=== PATIENT | female | born 1965 | race Caucasian/White ===

== ENCOUNTER 2020-09-14 14:36 | Outpatient (REF) | payer BC, SELFPAY ==
[2020-09-14 15:25] LABS: Anion Gap 12 (12-20); Blood Urea Nitrogen 13 mg/dL (9-16); Calcium 9.3 mg/dL (8.4-10.2); Carbon Dioxide 31 mmol/L (22-29); Chloride 99 mmol/L (96-108); Estimated Glomerular Filt Rate > 60; Phosphorus 3.9 mg/dL (2.7-4.5); Potassium 3.5 mmol/L (3.3-5.1); Sodium 138 mmol/L (135-145)
[2020-09-14 16:51] LABS: Renal w Reflex Lab Use Only Order verified
== END 2020-09-14 14:37 | disposition home or self-care (01) ==
LOC: HO.LAB 14:36
PROVIDERS: PCP Family Medicine; Visit Provider Internal Medicine Nephrology
DX: I10 Essential (primary) hypertension (principal)
CPT/HCPCS: 36415; 80051; 82310; 82565; 84100; 84520

== ENCOUNTER 2021-09-04 14:39 | Outpatient (REF) | payer BC, SELFPAY ==
[2021-09-04 15:39] LABS: Anion Gap 10 (12-20); Blood Urea Nitrogen 13 mg/dL (9-16); Carbon Dioxide 34 mmol/L (22-29); Chloride 97 mmol/L (96-108); Estimated Glomerular Filt Rate > 60; Sodium 137 mmol/L (135-145)
[2021-09-04 16:25] LABS: Creatinine Urine 15.16 mg/dL; Total Protein Urine Random < 7 mg/dL (<12)
== END 2021-09-04 14:40 | disposition home or self-care (01) ==
LOC: HO.LAB 14:39
PROVIDERS: PCP Family Medicine; Visit Provider Internal Medicine Nephrology
DX: I10 Essential (primary) hypertension (principal)
CPT/HCPCS: 36415; 80051; 82310; 82565; 84156; 84520

== ENCOUNTER 2022-12-31 09:11 | Outpatient (REF) | payer OTHER, SELFPAY ==
[2022-12-31 11:00] LABS: Anion Gap 12 (12-20); Blood Urea Nitrogen 13 mg/dL (9-16); Carbon Dioxide 32 mmol/L (22-29); Chloride 100 mmol/L (96-108); Estimated Glomerular Filt Rate > 60; Potassium 3.6 mmol/L (3.3-5.1); Sodium 140 mmol/L (135-145)
[2022-12-31 11:42] LABS: Creatinine Urine 110.35 mg/dL; Microalbumin Urine < 5.0 mg/L
== END 2022-12-31 09:12 | disposition home or self-care (01) ==
LOC: HO.LAB 09:11
PROVIDERS: PCP Family Medicine; Visit Provider Internal Medicine Nephrology
DX: I10 Essential (primary) hypertension (principal)
CPT/HCPCS: 36415; 80051; 82043; 82310; 82565; 84520

== ENCOUNTER 2023-08-19 10:41 | Outpatient (REF) | payer OTHER, SELFPAY ==
[2023-08-19 10:58] LABS: MANUAL DIFF FLAG NO
[2023-08-19 11:42] LABS: Basophils Absolute Auto 0.1 X10*3/uL (0.0-0.2); Basophils Percent Auto 0.6 % (0-2); Eosinophils Absolute Auto 0.3 X10*3/uL (0.0-0.4); Eosinophils Percent Auto 2.8 % (0-4); Hemoglobin 14.9 g/dl (12.0-16.0); Imm Gran Abs Auto 0.03 X10*3/uL (0.00-0.03); Imm Gran Pct Auto 0.3 % (0.0-0.4); Lymphocytes Absolute Auto 3.9 X10*3/uL (1.2-4.9); Lymphocytes Percent Auto 40.1 % (20-40); Mean Corpuscular HGB Conc 34.7 g/dl (31.0-35.0); Mean Corpuscular Hemoglobin 29.4 pg (27.0-33.0); Mean Platelet Volume 9.1 fL (9.4-12.3); Monocytes Absolute Auto 0.7 X10*3/uL (0.1-1.2); Monocytes Percent Auto 7.5 % (2-11); Neutrophils Absolute Auto 4.8 x10*3/uL (2.0-8.3); Neutrophils Percent Auto 48.7 % (45-73); Platelet Count 312 X10*3/uL (160-400); Red Blood Count 5.06 X10*6/uL (4.20-5.50); Red Cell Distribution Width 13.5 % (11.0-16.0); White Blood Count 9.8 X10*3/uL (4.8-10.8)
[2023-08-19 12:19] LABS: Anion Gap 11 (12-20); Blood Urea Nitrogen 16 mg/dL (9-16); Calcium 9.6 mg/dL (8.4-10.2); Carbon Dioxide 32 mmol/L (22-29); Chloride 102 mmol/L (96-108); Estimated Glomerular Filt Rate > 60; Glucose Random 107 mg/dL (60-115); Sodium 141 mmol/L (135-145)
== END 2023-08-19 10:42 | disposition home or self-care (01) ==
LOC: HO.LAB 10:41
PROVIDERS: Visit Provider Internal Medicine Hypertension Specialist
DX: N18.30 Chronic kidney disease, stage 3 unspecified (principal)
CPT/HCPCS: 36415; 80048; 85025

== ENCOUNTER 2023-08-20 10:14 | Outpatient (AMB) | payer OTHER, SELFPAY ==
[2023-08-20 10:23] VITALS: BP 130/72; PULSE 75; O2SAT 98; BMI 36.2
--- NOTE | 2023-08-20 10:23 | HO.NEPHOV_ITS ---
HPI HPI Comments History of Present Illness Details I would the pleasure of seeing Ely in follow-up of her hypertension. She is feeling well. She has gained quite a bit of weight. She denies any chest pain, chest tightness, shortness of breath, paroxysmal nocturnal dyspnea, orthopnea, pedal edema, urinary symptoms, orthostatic symptoms. She does not take any nonsteroidal anti-inflammatory medications. She tries to maintain good hydration. Her blood pressure has been at goal. REPLACED BY [facility] Medical History (Updated 08/20/23 @ 13:13 by Chon Severino MD) Hypertension Surgical History (Updated 08/20/23 @ 10:25 by Katie Little MA) History of surgical removal of ganglion cyst Hx of appendectomy Hx of tonsillectomy Family History (Updated 08/20/23 @ 10:27 by Katie Little MA) Mother Diabetes Hypertension High cholesterol Father Parkinson disease Social History (Updated 08/20/23 @ 10:27 by Katie Little MA) Alcohol intake: never Patient Tobacco Use Status: Never used Tobacco Vital Signs 08/20/23 10:23 Height 5 ft 3 in Weight 204 lb 8 oz BMI 36.2 BP 130/72 Blood Pressure Location Lt brachial Position Sitting Pulse 75 Pulse Source Pulse Oximeter Pulse Oximetry (%) 98 Oxygen Delivery Method Room Air Physical Exam Vital Signs: Last Vital Signs Pulse 75 08/20/23 10:23 BP 130/72 08/20/23 10:23 Pulse Ox 98 08/20/23 10:23 Oxygen Delivery Method Room Air 08/20/23 10:23 BMI result Body Mass Index 36.2 Const General: comfortable and no acute distress Orientation/consciousness: patient oriented x3 HEENT Head: Yes normocephalic Mouth: Normal oral and palatal mucosa present Eyes EOM: EOMs intact bilaterally Neck Neck: Yes supple Resp Auscultation: clear to auscultation bilaterally Cardio Jugular venous distension: no JVD Rate: regular rate GI Palpation (GI): Soft to palpation Auscultation: normal bowel sounds General: Yes no CVA tenderness Back/Spine/Pelvis Back: no CVA tenderness Skin General skin exam: no rashes or lesions noted Neuro General: patient oriented x3 and moves all extremities Extrem General: Yes no pedal edema Assessment & Plan Assessment & Plan (1) Hypertension: Code(s): I10 - Essential (primary) hypertension Qualifiers: Hypertension type: primary hypertension Qualified Code(s): I10 - Essential (primary) hypertension Plan Ely has longstanding hypertension and is currently well controlled on current medication regimen. She is diabetic and is on not Trulicity. She is gained quite a bit of weight. She has not known to have any retinopathy, proteinuria, left ventricular hypertrophy or renal dysfunction. She never had any coronary artery disease, CVA, congestive heart failure. She needs to lose significant weight. She needs to maintain low-sodium diet. She will be benefitted from a sleep study. I had not make any medication changes today. All these have been discussed in detail. Answered all questions. Follow-up appointment given. Coding Level of Care Code Est Pt Level 4 (28157) Diagnoses Primary hypertension I10 Hypertension type: primary hypertension Results Reviewed Nephrology Results: Hgb 14.9 g/dl (12.0-16.0) 08/19/23 WBC 9.8 X10*3/uL (4.8-10.8) 08/19/23 Plt Count 312 X10*3/uL (160-400) 08/19/23 Sodium 141 mmol/L (135-145) 08/19/23 Potassium 4.0 mmol/L (3.3-5.1) 08/19/23 Chloride 102 mmol/L (96-108) 08/19/23 Carbon Dioxide 32 mmol/L (22-29) H 08/19/23 BUN 16 mg/dL (9-16) 08/19/23 Creatinine 0.71 mg/dL (0.5-1.4) 08/19/23 Calcium 9.6 mg/dL (8.4-10.2) 08/19/23 Phosphorus 3.9 mg/dL (2.7-4.5) 09/14/20 Urine Creatinine 110.35 mg/dL 12/31/22 Protein/Creatinin Ratio TNP 09/04/21
== END 2023-08-20 10:52 | disposition home or self-care (01) ==
PROVIDERS: PCP Family Medicine; Visit Provider Internal Medicine Nephrology
DX: I10 Essential (primary) hypertension (principal)
CPT/HCPCS: 99214

== ENCOUNTER → 2023-08-20 10:14 | Outpatient (BNVA) | payer OTHER, SELFPAY | PROVIDERS: PCP Family Medicine; Visit Provider Internal Medicine Nephrology | DX: I10 Essential (primary) hypertension (principal) | CPT/HCPCS: 99212 ==

== ENCOUNTER 2024-02-11 09:42 | Outpatient (REF) | payer OTHER, SELFPAY ==
[2024-02-11 10:35] LABS: Anion Gap 16 (12-20); Blood Urea Nitrogen 12 mg/dL (9-16); Carbon Dioxide 29 mmol/L (22-29); Chloride 97 mmol/L (96-108); Estimated Glomerular Filt Rate > 60; Potassium 3.5 mmol/L (3.3-5.1); Sodium 138 mmol/L (135-145)
== END 2024-02-11 09:43 | disposition home or self-care (01) ==
LOC: HO.LAB 09:42
PROVIDERS: PCP Family Medicine; Visit Provider Internal Medicine Nephrology
DX: I10 Essential (primary) hypertension (principal)
CPT/HCPCS: 36415; 80051; 82565; 84520

== ENCOUNTER 2024-02-12 12:58 | Outpatient (REF) | payer OTHER, SELFPAY ==
[2024-02-12 14:00] LABS: Creatinine Urine 80.78 mg/dL; Total Protein Urine Random < 7 mg/dL (<12)
== END 2024-02-12 12:59 | disposition home or self-care (01) ==
LOC: HO.LNP 12:58
PROVIDERS: Visit Provider Internal Medicine Nephrology
DX: I10 Essential (primary) hypertension (principal)
CPT/HCPCS: 82570; 84156

== ENCOUNTER 2024-02-18 10:46 | Outpatient (AMB) | payer OTHER, SELFPAY ==
--- NOTE | 2024-02-18 10:51 | HO.NEPHOV ---
Vital Signs 02/18/24 10:52 Height 5 ft 3 in Weight 203 lb 4 oz BMI 36.0 BP 122/74 Blood Pressure Location Rt brachial Position Sitting Pulse 71 Pulse Source Pulse Oximeter Pulse Oximetry (%) 97 Oxygen Delivery Method Room Air Intake Visit Reasons: Hypertension/ 6 MO FU- Conf Refrigerated Company Driver Required: No Accompanied by: Self / Same As Patient Allergies No Known Allergies Allergy (Verified 02/18/24 10:54) HPI Comments Details: I had the pleasure of seeing Ely in follow-up of her hypertension. She is feeling well. She has gained some weight. She denies any chest pain, chest tightness, shortness of breath, paroxysmal nocturnal dyspnea, orthopnea, pedal edema, urinary symptoms, orthostatic symptoms. She does not take any nonsteroidal anti-inflammatory medications. She tries to maintain good hydration. Her blood pressure has been at goal [facility] Medical History (Updated 08/20/23 @ 13:13 by Chon Severino MD) Hypertension Surgical History (Updated 08/20/23 @ 10:25 by Katie Little MA) History of surgical removal of ganglion cyst Hx of appendectomy Hx of tonsillectomy Family History Mother Diabetes Hypertension High cholesterol Father Parkinson disease Social History Alcohol intake: never Patient Tobacco Use Status: Never used Tobacco Review of Systems Const All systems reviewed & are unremarkable except as noted in HPI and below Physical Exam Vital Signs: Last Vital Signs Pulse 71 02/18/24 10:52 BP 122/74 02/18/24 10:52 Pulse Ox 97 02/18/24 10:52 Oxygen Delivery Method Room Air 02/18/24 10:52 BMI result Body Mass Index 36.0 Const General: comfortable and no acute distress Orientation/consciousness: patient oriented x3 HEENT Head: Yes normocephalic Mouth: Normal oral and palatal mucosa present Eyes EOM: EOMs intact bilaterally Neck Neck: Yes supple Resp Auscultation: clear to auscultation bilaterally Cardio Jugular venous distension: no JVD Rate: regular rate GI Palpation (GI): Soft to palpation Auscultation: normal bowel sounds General: Yes no CVA tenderness Back/Spine/Pelvis Back: no CVA tenderness Skin General skin exam: no rashes or lesions noted Neuro General: patient oriented x3 and moves all extremities Extrem General: Yes no pedal edema Results Reviewed Nephrology Results: Hgb 14.9 g/dl (12.0-16.0) 08/19/23 WBC 9.8 X10*3/uL (4.8-10.8) 08/19/23 Plt Count 312 X10*3/uL (160-400) 08/19/23 Sodium 138 mmol/L (135-145) 02/11/24 Potassium 3.5 mmol/L (3.3-5.1) 02/11/24 Chloride 97 mmol/L (96-108) 02/11/24 Carbon Dioxide 29 mmol/L (22-29) 02/11/24 BUN 12 mg/dL (9-16) 02/11/24 Creatinine 0.80 mg/dL (0.5-1.4) 02/11/24 Calcium 9.6 mg/dL (8.4-10.2) 08/19/23 Phosphorus 3.9 mg/dL (2.7-4.5) 09/14/20 Urine Creatinine 80.78 mg/dL 02/12/24 Protein/Creatinin Ratio TNP 02/12/24 Assessment & Plan Assessment & Plan (1) Hypertension: Code(s): I10 - Essential (primary) hypertension Category: Medical Qualifiers: Hypertension type: primary hypertension Qualified Code(s): I10 - Essential (primary) hypertension Plan Ely has longstanding hypertension and is currently well controlled on current medication regimen. She is diabetic and is on not Trulicity. She has gained some weight. She has not known to have any retinopathy, proteinuria, left ventricular hypertrophy or renal dysfunction. She never had any coronary artery disease, CVA, congestive heart failure. She needs to lose significant weight. She needs to maintain low-sodium diet. She will be benefitted from a sleep study( I ordered one). I had not make any medication changes today. All these have been discussed in detail. Answered all questions. Follow-up appointment given Orders: Orders RT home sleep study 02/18/24 I10 - Essential (primary) hypertension Coding Level of Care Code Est Pt Level 4 (52652) Diagnoses Primary hypertension I10 Hypertension type: primary hypertension
[2024-02-18 10:52] VITALS: BP 122/74; PULSE 71; O2SAT 97; BMI 36.0
== END 2024-02-18 11:13 | disposition home or self-care (01) ==
PROVIDERS: PCP Family Medicine; Visit Provider Internal Medicine Nephrology
DX: I10 Essential (primary) hypertension (principal)
CPT/HCPCS: 99214

== ENCOUNTER → 2024-02-18 10:46 | Outpatient (BNVA) | payer OTHER, SELFPAY | PROVIDERS: PCP Family Medicine; Visit Provider Internal Medicine Nephrology | DX: I10 Essential (primary) hypertension (principal) | CPT/HCPCS: 99212 ==

== ENCOUNTER → 2024-04-26 08:29 | Outpatient (REF) | payer OTHER, SELFPAY | LOC: HO.SL 08:29 | PROVIDERS: PCP Family Medicine; Visit Provider Internal Medicine Nephrology | DX: R06.83 Snoring (principal); I10 Essential (primary) hypertension | CPT/HCPCS: 95806 ==

== ENCOUNTER → 2024-04-27 09:00 | Outpatient (BNV) | payer OTHER, SELFPAY | PROVIDERS: PCP Family Medicine; Visit Provider Internal Medicine | DX: R06.83 Snoring (principal); G47.10 Hypersomnia, unspecified | CPT/HCPCS: 95806 ==

== ENCOUNTER 2024-06-21 10:26 | Outpatient (AMB) | payer BC, MEDICAID, SELFPAY ==
--- NOTE | 2024-06-21 09:54 | A.OFFVIS_ITS ---
Vital Signs 06/21/24 10:30 06/21/24 11:04 Height 5 ft 3 in Weight 199 lb 8.293 oz BMI 35.3 Pulse 84 Pulse Source Pulse Oximeter Pulse Oximetry (%) 90 L 98 Oxygen Delivery Method Room Air Room Air Intake Visit Reasons: Obstructive sleep apnea Investment Executive Required: No Telegraph Repeater Technician: Telegraph Repeater Technician offered & declined Allergies No Known Allergies Allergy (Verified 06/21/24 10:32) Medication List - Last Reconciled 06/21/24 by Hyacinth Tillman LPN atorvastatin 10 mg PO DAILY blood sugar diagnostic ([employer] Ultra Test strips) As directed dulaglutide (Trulicity) 1.5 mg subcut QWEEK hydrochlorothiazide 25 mg PO DAILY multivitamin 1 tab PO DAILY valsartan 320 mg PO DAILY HPI HPI Obstructive sleep apnea: Details: Ely is a pleasant 58 year old female, never smoker, with underlying hypertension. She was referred by Nephrology after recent home sleep study revealed moderate obstructive sleep apnea with mild nocturnal hypoxemia. She was initially sent for nonrestorative sleep, daytime fatigue and loud snoring. She denies prior dx of CALE or use of CPAP therapy. She denies any pertinent family history. She reports h/o mild asthma usually allergy related, using albuterol very infrequently and denies any respiratory symptoms at this time. [facility] Medical History (Updated 06/21/24 @ 11:02 by Kae James NP) Hypertension Surgical History (Updated 08/20/23 @ 10:25 by Katie Little MA) History of surgical removal of ganglion cyst Hx of appendectomy Hx of tonsillectomy Family History Mother Diabetes Hypertension High cholesterol Father Parkinson disease Social History Alcohol intake: never Patient Tobacco Use Status: Never used Tobacco Review of Systems Const Denies chills, Denies excessive sweating, Denies fever(s), Denies headache(s) and Denies night sweats Eyes Denies dry eyes, Denies irritation and Denies itchy eyes ENT Reports Normal hearing present and Denies headache(s) Card Denies chest pain, Denies chest pain at rest, Denies chest pain with activity, Denies claudication, Denies leg edema, Denies dyspnea, Denies dyspnea on exertion, Denies orthopnea and Denies paroxysmal nocturnal dyspnea Resp Denies chest congestion, Denies cough, Denies excessive phlegm production, Denies pain on inspiration, Denies pain with cough, Denies dyspnea, Denies dyspnea on exertion, Denies stridor and Denies wheezing Musc Denies myalgias Neuro Reports Normal hearing present and Denies headache(s) Endo Denies excessive sweating Woo/Lymph Denies lymphadenopathy Aller/Immun Denies itchy eyes, Denies seasonal rhinorrhea and Denies wheezing Physical Exam Vital Signs: Last Vital Signs Pulse 84 06/21/24 10:30 Pulse Ox 90 L 06/21/24 10:30 Oxygen Delivery Method Room Air 06/21/24 10:30 BMI result Body Mass Index 35.3 Const General: cooperative, healthy appearing, comfortable, no acute distress, well developed and alert Nutritional Appearance: obese Orientation/consciousness: patient oriented x3 Limitations: no limitations HEENT Head: Yes normal to inspection, Yes normocephalic and Yes atraumatic Ears: hearing grossly normal bilaterally and external ears normal Eyes General: appearance normal, both eyes and all related structures Eyelids: Yes eyelids normal Sclerae: sclerae normal EOM: EOMs intact bilaterally Neck Neck: Yes normal visual inspection and Yes no lymphadenopathy Lymphatic: no lymphadenopathy noted Chest Chest palpation & inspection: normal inspection of the chest Resp Effort & Inspection: normal respiratory effort, able to speak in complete sentences, no audible wheezes, no cough, no stridor, not tachypneic, no tripod positioning and no use of accessory muscles Auscultation: clear to auscultation bilaterally Cardio Jugular venous distension: no JVD Rate: regular rate Rhythm: regular rhythm Skin Other: warm, dry General skin exam: no rashes or lesions noted Neuro General: patient oriented x3 Cranial nerves: Yes Normal hearing present Cognition (Neuro): normal cognition Gait exam (Neuro): Normal gait present Extrem General: Yes normal to inspection, Yes capillary refill normal, Yes no clubbing, cyanosis or edema and Yes no pedal edema Psych Appearance: grossly normal and well kempt Speech and movement: Normal speech and movement present and Clear speech present Affect: normal affect Attitude: cooperative Thought process: Normal thought process present Thought content: Normal thought content present Insight: Good insight present (Psych) Judgement: Good judgement present (Psych) Assessment & Plan Assessment & Plan (1) Obstructive sleep apnea: Code(s): G47.33 - Obstructive sleep apnea (adult) (pediatric) Category: Medical (2) Nocturnal hypoxemia: Code(s): G47.34 - Idiopathic sleep related nonobstructive alveolar hypoventilation Category: Medical Plan Reviewed sleep study results with patient which revealed an AHI of 20, mild nocturnal hypoxemia <88% for 13 minutes, lowest 75%. Since patient is quite symptomatic, will start CPAP therapy. Will send in prescription for APAP mode and pressure settings of 6-20 cm with close monitoring for compliance and benefits. Once on CPAP therapy will send for overnight oximetry to ensure nocturnal hypoxemia has resolved with use. Sleep hygiene education reviewed. She is aware if there are any issues with the mask or CPAP machine, she will call the office. All questions were answered and patient is in agreement of plan. Will follow up in 8 weeks. Coding Level of Care Code New Pt Level 4 (49682) Diagnoses Obstructive sleep apnea G47.33 Nocturnal hypoxemia G47.34
[2024-06-21 10:30] VITALS: PULSE 84; O2SAT 90; BMI 35.3
[2024-06-21 11:04] VITALS: O2SAT 98
== END 2024-06-21 11:01 | disposition home or self-care (01) ==
PROVIDERS: PCP Family Medicine; Visit Provider Nurse Practitioner Family
DX: G47.33 Obstructive sleep apnea (adult) (pediatric) (principal); G47.34 Idiopathic sleep related nonobstructive alveolar hypoventilation
CPT/HCPCS: 99204

== ENCOUNTER → 2024-06-21 10:26 | Outpatient (BNVA) | payer OTHER, SELFPAY | PROVIDERS: PCP Family Medicine; Visit Provider Nurse Practitioner Family ==

== ENCOUNTER 2024-08-18 14:56 | Outpatient (AMB) | payer OTHER, SELFPAY ==
--- NOTE | 2024-08-18 15:06 | HO.NEPHOV ---
Vital Signs 08/18/24 15:07 Height 5 ft 3 in Weight 201 lb 6 oz BMI 35.7 BP 128/74 Blood Pressure Location Lt brachial Position Sitting Pulse 78 Pulse Source Pulse Oximeter Pulse Oximetry (%) 99 Oxygen Delivery Method Room Air Intake Visit Reasons: Hypertension-Conf Asbestos Wire Finisher Required: No Accompanied by: Spouse Allergies No Known Allergies Allergy (Verified 08/18/24 15:06) HPI Comments Details: I had the pleasure of seeing Ely in follow-up of her hypertension. She is feeling well. She has gained some weight. She denies any chest pain, chest tightness, shortness of breath, paroxysmal nocturnal dyspnea, orthopnea, pedal edema, urinary symptoms, orthostatic symptoms. She does not take any nonsteroidal anti-inflammatory medications. She tries to maintain good hydration. Her blood pressure has been at goal. She is diagnosed to have CALE and is on CPAP. She feels better since she went on CPAP [facility] Medical History (Updated 06/21/24 @ 11:02 by Kae James NP) Hypertension Surgical History History of surgical removal of ganglion cyst Hx of appendectomy Hx of tonsillectomy Family History Mother Diabetes Hypertension High cholesterol Father Parkinson disease Social History Alcohol intake: never Patient Tobacco Use Status: Never used Tobacco Review of Systems Const All systems reviewed & are unremarkable except as noted in HPI and below Physical Exam Vital Signs: Last Vital Signs Pulse 78 08/18/24 15:07 BP 128/74 08/18/24 15:07 Pulse Ox 99 08/18/24 15:07 Oxygen Delivery Method Room Air 08/18/24 15:07 BMI result Body Mass Index 35.7 Const General: comfortable and no acute distress Orientation/consciousness: patient oriented x3 HEENT Head: Yes normocephalic Mouth: Normal oral and palatal mucosa present Eyes EOM: EOMs intact bilaterally Neck Neck: Yes supple Resp Auscultation: clear to auscultation bilaterally Cardio Jugular venous distension: no JVD Rate: regular rate GI Palpation (GI): Soft to palpation Auscultation: normal bowel sounds Skin General skin exam: no rashes or lesions noted Neuro General: patient oriented x3 and moves all extremities Extrem General: Yes no pedal edema Assessment & Plan Assessment & Plan (1) Hypertension: Code(s): I10 - Essential (primary) hypertension Category: Medical Qualifiers: Hypertension type: primary hypertension Qualified Code(s): I10 - Essential (primary) hypertension Plan Ely has longstanding hypertension and is currently well controlled on current medication regimen. She is diabetic and is on Trulicity. She has gained some weight. She has not known to have any retinopathy, proteinuria, left ventricular hypertrophy or renal dysfunction. She never had any coronary artery disease, CVA, congestive heart failure. She needs to lose significant weight. She needs to maintain low-sodium diet. She is now compliant with CPAP. I had not make any medication changes today. All these have been discussed in detail. Follow-up appointment given Orders: Orders Protein Creatinine Ratio, Ur 1 Year I10 - Essential (primary) hypertension Creatinine 1 Year I10 - Essential (primary) hypertension Blood Urea Nitrogen 1 Year I10 - Essential (primary) hypertension Electrolytes 1 Year I10 - Essential (primary) hypertension Medications: New hydrochlorothiazide 25 mg PO DAILY 90 tabs 4RF valsartan 320 mg PO DAILY 90 tabs 4RF Coding Level of Care Code Est Pt Level 4 (99483) Diagnoses Primary hypertension I10 Hypertension type: primary hypertension
[2024-08-18 15:07] VITALS: BP 128/74; PULSE 78; O2SAT 99; BMI 35.7
--- OUTSIDE RECORDS SUMMARY | 2024-08-18 17:33 | XMS_ITS | Clinical Summary ---
Author Organization [facility] Address [address] [place] [address] Phone Care Team Providers Care Surg Tech Name Role Phone Christopher Baldwin DO Primary Care Provider [phone] Allergies No known active allergies Medications Melatonin 5 MG tablet Take 1 tablet by mouth Active cholecalciferol (VITAMIN D-3) 25 MCG (1000 UT) tablet Take 1,000 Units by mouth 1 (one) time each day Active Trulicity 0.75 MG/0.5ML solution pen-injector INJECT 0.5 ML UNDER THE SKIN INJECTION EVERY WEEK. ROTATE INJECTION SITES 2 Active valsartan (DIOVAN) 320 MG tablet TAKE 1 TABLET BY MOUTH ONCE DAILY 90 tablet 1 3 Active hydroCHLOROthia zide 25 MG tablet TAKE 1 TABLET BY MOUTH EVERY DAY 90 tablet 1 3 Active atorvastatin (LIPITOR) 10 MG tablet Take 10 mg by mouth 1 (one) time each day Active Active Problems Problem Noted Date Diagnosed Date Alkaline phosphatase above reference range 04/03 History of adenomatous polyp of colon 04/03/2022 Obese class II 04/03/2022 Type 2 diabetes mellitus 04/03/2022 Essential hypertension 09/20/2020 Immunizations Name Administration Dates Next Due Moderna SARS-COV-2 10/26/2020,09/28/2020 Family History Medical History Relation Comments Diabetes Mother Diabetes Sibling Relation Status Comments Father Alive Mother Alive Sibling Social History Tobacco Use Types Packs/Day Years Used Date Smoking Tobacco: Never Smokeless Tobacco: Never Tobacco Cessation:Counseling Given: Not Answered Alcohol Use Standard Drinks/Week Comments Yes 0 (1 standard drink = 0.6 oz pure alcohol) Alcoholic Drinks/day: Occasional social drink Comments Unknown Sex and Gender Information Value Date Recorded Sex Assigned at Not on file Legal Sex Female 5:05 PM EST Gender Identity Not on file Sexual Orientation Not on file Last Filed Vital Signs Vital Sign Reading Time Taken Comments Blood Pressure 124/62 03/05/2023 3:17 PM EDT Pulse 86 03/05/2023 3:17 PM EDT Temperature - - Respiratory Rate - - Oxygen Saturation 98% 03/05/2023 3:17 PM EDT Inhaled Oxygen Concentration - - Weight 91.4 kg (201 lb 9.6 oz) 03/05/2023 3:17 P M EDT Height 162.6 cm (5' 4 ) 10/11/2019 12:00 PM EDT Body Mass Index 34.6 10/11/2019 12:00 PM EDT Plan of Treatment Health Maintenance Due Date Last Done Comments Breast Cancer Screening 1965 Pneumococcal Vaccine: Pediat rics (0 to 5 Years) and At-Risk Patients (6 to 64 Years) (1 of 2 - PCV) 09/24/1971 Hepatitis B Vaccine (1 of 3 - 19+ 3-dose series) 09/2311/28/2022 Colorectal Cancer Screening: Annual FOBT 2014 Colorectal Cancer Screening: Colonoscopy 2014 Colorectal Cancer Screening: Sigmoidoscopy 2014 Diabetes: Hemoglobin A1C 04/03/2022 Diabetes: Ophthalmology Exam 04/03/2022 Diabetes: Pedal Pulse Checked 04/03/2022 Diabetes: Sensory Foot Exam 04/03/2022 Diabetes: Visual Foot Exam 04/03/2022 Influenza Vaccine (#1) 2024 Insurance [employer] Care Teams Surg Tech Relationship Specialty Start Date End Date Christopher Baldwin DO [address] [place] [address] PCP - General 06/19/20
== END 2024-08-18 15:30 | disposition home or self-care (01) ==
LOC: HO.HKA 14:57
PROVIDERS: PCP Family Medicine; Visit Provider Internal Medicine Nephrology
DX: I10 Essential (primary) hypertension (principal)
CPT/HCPCS: 99214

== ENCOUNTER → 2024-08-18 14:56 | Outpatient (BNVA) | payer OTHER, SELFPAY | PROVIDERS: PCP Family Medicine; Visit Provider Internal Medicine Nephrology | DX: I10 Essential (primary) hypertension (principal) | CPT/HCPCS: 99212 ==

== ENCOUNTER 2024-08-23 10:03 | Outpatient (AMB) | payer MEDICAID, SELFPAY ==
[2024-08-23 10:04] VITALS: BP 128/68; PULSE 80; O2SAT 97; BMI 35.9
--- NOTE | 2024-08-23 10:04 | MHC.OFFVIS ---
Vital Signs 08/23/24 10:04 Height 5 ft 3 in Weight 202 lb 13.204 oz BMI 35.9 BP 128/68 Blood Pressure Location Lt brachial Pulse 80 Pulse Source Pulse Oximeter Pulse Oximetry (%) 97 Oxygen Delivery Method Room Air Intake Visit Reasons: Obstructive sleep apnea Network Cabler Required: No Adjunct History Instructor: Adjunct History Instructor offered & declined Accompanied by: Self / Same As Patient Allergies No Known Allergies Allergy (Verified 08/23/24 10:08) Medication List - Last Reconciled 08/23/24 by Hyacinth Tillman LPN atorvastatin 10 mg PO DAILY blood sugar diagnostic ([employer] Ultra Test strips) As directed dulaglutide (Trulicity) 1.5 mg subcut QWEEK hydrochlorothiazide 25 mg PO DAILY multivitamin 1 tab PO DAILY valsartan 320 mg PO DAILY HPI HPI Obstructive sleep apnea: Details: Ely is a pleasant 58 year old female, former minimal smoker, with underlying moderate CALE, asthma and hypertension. She was initially referred by Nephrology after recent home sleep study revealed moderate obstructive sleep apnea with mild nocturnal hypoxemia <88% for 13 minutes, lowest 75%. She was started on CPAP therapy with APAP mode and pressure settings of 6-20 cmH2O, using nasal pillows. She reports overall improvements in nonrestorative sleep, daytime fatigue and loud snoring. Today she presents to review compliance report. [facility] is [facility]. At this time, she denies any respiratory symptoms. Currently has albuterol MDI however uses infrequently. Previously under the care of Cindy. [facility], [facility] Medical History (Updated 06/21/24 @ 11:02 by Kae James NP) Hypertension Surgical History History of surgical removal of ganglion cyst Hx of appendectomy Hx of tonsillectomy Family History Mother Diabetes Hypertension High cholesterol Father Parkinson disease Social History Alcohol intake: never Patient Tobacco Use Status: Never used Tobacco Review of Systems Const Denies chills, Denies excessive sweating, Denies fever(s), Denies headache(s) and Denies night sweats Eyes Denies dry eyes, Denies irritation and Denies itchy eyes ENT Reports Normal hearing present and Denies headache(s) Card Denies chest pain, Denies chest pain at rest, Denies chest pain with activity, Denies claudication, Denies leg edema, Denies dyspnea, Denies dyspnea on exertion, Denies orthopnea and Denies paroxysmal nocturnal dyspnea Resp Denies chest congestion, Denies cough, Denies excessive phlegm production, Denies pain on inspiration, Denies pain with cough, Denies dyspnea, Denies dyspnea on exertion, Denies stridor and Denies wheezing Musc Denies myalgias Neuro Reports Normal hearing present and Denies headache(s) Endo Denies excessive sweating Woo/Lymph Denies lymphadenopathy Aller/Immun Denies itchy eyes, Denies seasonal rhinorrhea and Denies wheezing Physical Exam Const General: cooperative, healthy appearing, comfortable, no acute distress, well developed and alert Nutritional Appearance: obese Orientation/consciousness: patient oriented x3 Limitations: no limitations HEENT Head: Yes normal to inspection, Yes normocephalic and Yes atraumatic Ears: hearing grossly normal bilaterally and external ears normal Eyes General: appearance normal, both eyes and all related structures Eyelids: Yes eyelids normal Sclerae: sclerae normal EOM: EOMs intact bilaterally Neck Neck: Yes normal visual inspection and Yes no lymphadenopathy Lymphatic: no lymphadenopathy noted Chest Chest palpation & inspection: normal inspection of the chest Resp Effort & Inspection: normal respiratory effort, able to speak in complete sentences, no audible wheezes, no cough, no stridor, not tachypneic, no tripod positioning and no use of accessory muscles Auscultation: clear to auscultation bilaterally Cardio Jugular venous distension: no JVD Rate: regular rate Rhythm: regular rhythm Skin Other: warm, dry General skin exam: no rashes or lesions noted Neuro General: patient oriented x3 Cranial nerves: Yes Normal hearing present Cognition (Neuro): normal cognition Gait exam (Neuro): Normal gait present Extrem General: Yes normal to inspection, Yes capillary refill normal, Yes no clubbing, cyanosis or edema and Yes no pedal edema Psych Appearance: grossly normal and well kempt Speech and movement: Normal speech and movement present and Clear speech present Affect: normal affect Attitude: cooperative Thought process: Normal thought process present Thought content: Normal thought content present Insight: Good insight present (Psych) Judgement: Good judgement present (Psych) Assessment & Plan Assessment & Plan (1) Obstructive sleep apnea: Code(s): G47.33 - Obstructive sleep apnea (adult) (pediatric) Category: Medical (2) Nocturnal hypoxemia: Code(s): G47.34 - Idiopathic sleep related nonobstructive alveolar hypoventilation Category: Medical Plan Reviewed compliance report and patient has been using >4 hours for 87% of the time, average AHI 2.7 with minimal leaking. There was a note of leaking for a few nights which was likely related to nasal congestion. Patient has been compliant and benefitting from CPAP therapy and motivated to continue. Will send for overnight oximetry to ensure nocturnal hypoxemia has resolved with CPAP therapy. All questions were answered and patient is in agreement of plan. Will follow up in 3-6 months or sooner if needed. Orders: Orders Overnight Pulse Oximetry Today G47.34 - Idiopathic sleep related nonobstructive alveolar hypoventilation Coding Level of Care Code Est Pt Level 4 (65484) Diagnoses Obstructive sleep apnea G47.33 Nocturnal hypoxemia G47.34
--- OUTSIDE RECORDS SUMMARY | 2024-08-23 11:11 | XMS_ITS | Clinical Summary ---
Author Organization [facility] Address [address] [place] [address] Phone Care Team Providers Care Bag Builder Name Role Phone Christopher Baldwin DO Primary Care Provider [phone] Allergies No known active allergies Medications Melatonin [...] HEALTH MEDICAID [facility] MEDICA[employer] Care Teams Bag Builder Relationship Specialty Start Date End Date Christopher Baldwin DO [address] [place] [address] PCP - General 06/19/20
== END 2024-08-23 10:25 | disposition home or self-care (01) ==
LOC: HO.HPS 10:03
PROVIDERS: PCP Family Medicine; Visit Provider Nurse Practitioner Family
DX: G47.33 Obstructive sleep apnea (adult) (pediatric) (principal); G47.34 Idiopathic sleep related nonobstructive alveolar hypoventilation
CPT/HCPCS: 99214

== ENCOUNTER → 2024-08-23 10:03 | Outpatient (BNVA) | payer OTHER, SELFPAY | PROVIDERS: PCP Family Medicine; Visit Provider Nurse Practitioner Family | DX: G47.33 Obstructive sleep apnea (adult) (pediatric) (principal); G47.34 Idiopathic sleep related nonobstructive alveolar hypoventilation | CPT/HCPCS: 99212 ==

== ENCOUNTER 2025-02-28 08:35 | Outpatient (AMB) | payer OTHER, SELFPAY ==
[2025-02-28 08:47] VITALS: BP 130/82; PULSE 68; O2SAT 99; BMI 37.1
--- NOTE | 2025-02-28 08:47 | MHC.OFFVIS ---
Vital Signs 02/28/25 08:47 Height 5 ft 3 in Weight 209 lb 7.026 oz BMI 37.1 BP 130/82 Blood Pressure Location Rt brachial Position Sitting Pulse 68 Pulse Source Pulse Oximeter Pulse Oximetry (%) 99 Oxygen Delivery Method Room Air Intake Visit Reasons: Obstructive sleep apnea Allergies No Known Allergies Allergy (Verified 02/28/25 08:50) HPI HPI Obstructive sleep apnea: Details: Ely is a pleasant 59 year old female, former minimal smoker, with underlying moderate CALE, asthma and hypertension. She was initially referred by Nephrology after home sleep study 04/2024 revealed moderate obstructive sleep apnea, AHI 19.8 with mild nocturnal hypoxemia <88% for 13 minutes, lowest 75%, average 92%. She has been using CPAP therapy with APAP mode and pressure settings of 6-20 cmH2O, using nasal pillows, with good effect. [facility]. Today she presents to review compliance report. In regards to asthma, patient has noticed and increase in wheezing as well as chest tightness, related to seasonal allergies, previously used albuterol MDI with good effect however does not have a current prescription. Of note, order for overnight oximetry was placed to assess for resolution of nocturnal hypoxemia with the use of CPAP therapy however patient refused and is not interested in testing. [facility] Medical History (Updated 02/28/25 @ 09:07 by Kae James NP) Hypertension Surgical History History of surgical removal of ganglion cyst Hx of appendectomy Hx of tonsillectomy Family History Mother Diabetes Hypertension High cholesterol Father Parkinson disease Social History Alcohol intake: never Patient Tobacco Use Status: Never used Tobacco Review of Systems Const Denies chills, Denies excessive sweating, Denies fever(s), Denies headache(s) and Denies night sweats Eyes Denies dry eyes, Denies irritation and Denies itchy eyes ENT Reports Normal hearing present and Denies headache(s) Card Denies chest pain, Denies chest pain at rest, Denies chest pain with activity, Denies claudication, Denies leg edema, Denies dyspnea, Denies dyspnea on exertion, Denies orthopnea and Denies paroxysmal nocturnal dyspnea Resp Denies chest congestion, Denies cough, Denies excessive phlegm production, Denies pain on inspiration, Denies pain with cough, Denies dyspnea, Denies dyspnea on exertion, Denies stridor and Reports wheezing Musc Denies myalgias Neuro Reports Normal hearing present and Denies headache(s) Endo Denies excessive sweating Woo/Lymph Denies lymphadenopathy Aller/Immun Denies itchy eyes, Denies seasonal rhinorrhea and Reports wheezing Physical Exam Vital Signs: BMI result Body Mass Index 37.1 Const General: cooperative, healthy appearing, comfortable, no acute distress, well developed and alert Nutritional Appearance: obese Orientation/consciousness: patient oriented x3 Limitations: no limitations HEENT Head: Yes normal to inspection, Yes normocephalic and Yes atraumatic Ears: hearing grossly normal bilaterally and external ears normal Eyes General: appearance normal, both eyes and all related structures Eyelids: Yes eyelids normal Sclerae: sclerae normal EOM: EOMs intact bilaterally Neck Neck: Yes normal visual inspection and Yes no lymphadenopathy Lymphatic: no lymphadenopathy noted Chest Chest palpation & inspection: normal inspection of the chest Resp Effort & Inspection: normal respiratory effort, able to speak in complete sentences, no audible wheezes, no cough, no stridor, not tachypneic, no tripod positioning and no use of accessory muscles Auscultation: diminished lung sounds Cardio Jugular venous distension: no JVD Rate: regular rate Rhythm: regular rhythm Skin Other: warm, dry General skin exam: no rashes or lesions noted Neuro General: patient oriented x3 Cranial nerves: Yes Normal hearing present Cognition (Neuro): normal cognition Gait exam (Neuro): Normal gait present Extrem General: Yes normal to inspection, Yes capillary refill normal, Yes no clubbing, cyanosis or edema and Yes no pedal edema Psych Appearance: grossly normal and well kempt Speech and movement: Normal speech and movement present and Clear speech present Affect: normal affect Attitude: cooperative Thought process: Normal thought process present Thought content: Normal thought content present Insight: Good insight present (Psych) Judgement: Good judgement present (Psych) Assessment & Plan Assessment & Plan (1) Obstructive sleep apnea: Code(s): G47.33 - Obstructive sleep apnea (adult) (pediatric) Category: Medical (2) Nocturnal hypoxemia: Code(s): G47.34 - Idiopathic sleep related nonobstructive alveolar hypoventilation Category: Medical (3) Asthma: Code(s): J45.909 - Unspecified asthma, uncomplicated Category: Medical Plan Reviewed compliance report and patient has been using >4 hours for 88% of the time, average AHI 2.6 with moderate leaking. She does note some difficulties with the nasal pillows staying in place and she recently placed a supply order. Discussed importance of switching supplies when due, tightening mask and possibly trialing a different mask to decrease overall leaking. Patient has been compliant and benefitting from CPAP therapy, noting improvements in nonrestorative sleep as well as daytime fatigue and is motivated to continue. Previously overnight oximetry ordered to ensure nocturnal hypoxemia has resolved with CPAP therapy, however patient not interested in testing. Patient has a h/o asthma, controlled with albuterol MDI PRN, however has no active prescription. Will refill. Recommended trialing antihistamine PRN for seasonal allergies. She is aware to call if symptoms are not controlled with albuterol MDI. All questions were answered and patient is in agreement of plan. Will follow up in 3-6 months or sooner if needed. Medications: New albuterol sulfate 90 mcg/actuation 2 puffs inhalation Q4-6H PRN 1 ea 2RF shortness of breath or wheezing Coding Level of Care Code Est Pt Level 4 (02221) Diagnoses Obstructive sleep apnea G47.33 Nocturnal hypoxemia G47.34 Asthma J45.909
--- OUTSIDE RECORDS SUMMARY | 2025-02-28 09:54 | XMS_ITS | Clinical Summary ---
Author Organization [facility] Address [address] [place] [address] Phone Care Team Providers Care Cellar Supervisor Name Role Phone Christopher Baldwin DO Primary Care Provider [phone] Allergies No known active allergies Medications Melatonin [...] diabetes mellitus 04/03/2022 Essential hypertension 09/20/2020 Immunizations Immunization Administration Dates Next Due Moderna SARS-COV-2 10/26/2020,09/28/2020 [...] Last Done Comments Breast Cancer Screening 1965 Hepatitis B Vaccine (1 of 3 - 19+ 3-dose series) 09/2311/28/2022 Pneumococcal Vaccine: 50+ Years (1 of 2 - PCV) 985 Colorectal Cancer Screening: Annual FOBT 2014 Colorectal Cancer Screening: Colonoscopy 2014 Colorectal Cancer Screening: Sigmoidoscopy 2014 Diabetes: Hemoglobin A1C 04/03/2022 Diabetes: Ophthalmology Exam 04/03/2022 Diabetes: Pedal Pulse Checked 04/03/2022 Diabetes: Sensory Foot Exam 04/03/2022 Diabetes: Visual Foot Exam 04/03/2022 Influenza Vaccine (#1) 2025 Insurance [facility] Medicaid [facility] Medicaid Care Teams Cellar Supervisor Relationship Specialty Start Date End Date Christopher Baldwin DO [address] [place] [id number] PCP - General 06/19/20
== END 2025-02-28 09:06 | disposition home or self-care (01) ==
LOC: HO.HPS 08:35
PROVIDERS: PCP Family Medicine; Visit Provider Nurse Practitioner Family
DX: G47.33 Obstructive sleep apnea (adult) (pediatric) (principal); G47.34 Idiopathic sleep related nonobstructive alveolar hypoventilation; J45.909 Unspecified asthma, uncomplicated
CPT/HCPCS: 99214

== ENCOUNTER → 2025-02-28 08:35 | Outpatient (BNVA) | payer OTHER, SELFPAY | PROVIDERS: PCP Family Medicine; Visit Provider Nurse Practitioner Family | DX: G47.33 Obstructive sleep apnea (adult) (pediatric) (principal); G47.34 Idiopathic sleep related nonobstructive alveolar hypoventilation; J45.909 Unspecified asthma, uncomplicated; Z99.89 Dependence on other enabling machines and devices | CPT/HCPCS: 99212 ==